=== PATIENT | female | born 1995 | race Caucasian/White ===

== ENCOUNTER 2016-10-16 12:54 | Emergency (ER) | payer OTHER ==
[~2016-10-16] VITALS: Ht 177.8 cm; Wt 98.9 kg
[~2016-10-16 12:54] MED LIST: BCPILLS PO; LORA-554 PO; MULT-877 PO
[2016-10-16 13:05] VITALS: TEMP 36.9; Ht 177.8 cm; Wt 98.9 kg
[2016-10-16] MEDS ORDERED: ACETLIQ12 PO (14:04)
--- NOTE | 2016-10-16 14:24 | EMERGENCY ROOM VISIT NOTE ---
History Report prepared by Tristan: Luis Delgado Under the Supervision of: Dr. Justin Vazquez M.D. First contact with patient: 14:18 Chief Complaint: ILLNESS Stated Complaint: SWOLLEN NECK, TIGHT THROAT, FEVER History of Present Illness The patient is a 21 year old female who presents to the Emergency Room with complaints of a persistent illness that started a few days ago. The patient thinks she has the mumps. She notes a swollen neck, fever, and a tight throat. The patient states that her fever has gone as high as 100 this morning. She denies nausea, vomiting, shortness of breath, abdominal pain, facial pain, groin pain, or leg swelling. The patient was vaccinated as a child. She took DayQuil this morning. The patient notes no major medical history. Source of History: patient Onset: A few days ago Position: other (global - illness) Timing: other (persistent) Associated Symptoms: + fevers, No SOB, No abdominal pain, No nausea, No vomiting Note: Associated symptoms: Swollen neck, tight throat. Denies facial pain, groin pain , or leg swelling. Review of Systems See HPI for pertinent positives & negatives. A total of 10 systems reviewed and were otherwise negative. Family History Patient reports no known family medical history. Social History Smoking Status: Never Smoker Marital Status: single Housing Status: lives with friends Occupation Status: [employer] student Current/Historical Medications Scheduled Control Pills ( Control Pills), 1 TAB PO HS Multiple Vitamins W/ Minerals (Multiple Vitamin/Minerals), 1 TAB PO DAILY Scheduled PRN Acetaminophen W/ Dm (Daytime Cold Medicine), 20 ML PO DAILY PRN for PRN Loratadine (Allergy Relief), Unknown Dose PO DAILY PRN for ALLERGIC REACTION Allergies Coded Allergies: No Known Allergies (Unverified , 10/16/16) Physical Exam Vital Signs Date Time Temp Pulse Resp B/P Pulse Ox O2 Delivery O2 Flow Rate FiO2 10/16/16 16:59 68 18 128/76 98 10/16/16 15:20 69 20 145/79 100 Room Air 10/16/16 13:05 36.9 89 20 137/77 100 Room Air Physical Exam GENERAL: Patient is well appearing and in no acute distress. HEENT: No acute trauma, normocephalic atraumatic, mucous membranes moist, no nasal congestion, no scleral icterus. NECK: No stridor, no meningismus, trachea is midline. Swelling of left upper anterior neck, nontender, no fluctuance. LUNGS: No dyspnea. Clear to auscultation and equal bilaterally. No wheeze, no rhonchi. HEART: Regular rate and rhythm. No murmurs, rubs, gallops appreciated. ABDOMEN: Soft, nontender, bowel sounds positive, no masses appreciated, no peritonitis. BACK: No midline tenderness, no CVA tenderness EXTREMITIES: Normal motion all extremities, no cyanosis, no edema. NEUROLOGIC: Alert and oriented, no acute motor or sensory deficits, no focal weakness, cranial nerves grossly intact. SKIN: No rash, no jaundice, no diaphoresis. Medical Decision & Procedures Laboratory Results 10/16/16 15:17 10/16/16 15:17 Test 10/16/16 15:17 10/16/16 16:47 Red Blood Count 4.89 M/uL (4.2-5.4) Mean Corpuscular Volume 77.5 fL (80-100) Mean Corpuscular Hemoglobin 25.4 pg (25-34) Mean Corpuscular Hemoglobin Concent 32.7 g/dl (32-36) RDW Standard Deviation 41.7 fL (36.4-46.3) RDW Coefficient of Variation 14.8 % (11.5-14.5) Mean Platelet Volume 10.0 fL (7.4-10.4) Anion Gap 10.0 mmol/L (3-11) Est Creatinine Clear Calc Drug Dose 145.3 ml/min Estimated GFR () 126.0 Estimated GFR (Non- 108.7 BUN/Creatinine Ratio 8.3 (10-20) Calcium Level 9.3 mg/dl (8.5-10.1) Monoscreen NEG (NEG) Laboratory results as reviewed by me. ED Course 1415: The patient was evaluated in room B12B. A complete history and physical exam was performed. 1640: I reevaluated the patient and she would like to go home. The patient verbally expressed understanding and agreement of the treatment plan. The patient will be discharged. Medical Decision Pleasant 21 yr old female arrives for left neck swelling with periodic fevers. No fluctuance on exam and minimal TTP. She is stable and looks well. No difficulty with swallowing nor breathing. Labs unremarkable and Cherry is negative. Mumps sent as it is currently in student population, though will take some time to return. Advised she contact [facility] to determine what restrictions she has but in mean time plan on avoiding populations. She plans on going home to [place] to avoid getting other's sick just in case. Aware she can return at any time if worsening issues or other concerns. No evidence of need for CT at this time. Not over parotid gland and no tongue swelling nor oropharynx involvement. No evidence ludwigs. Impression Primary Impression: Unilateral mass of neck Scribe Attestation The scribe's documentation has been prepared under my direction and personally reviewed by me in its entirety. I confirm that the note above accurately reflects all work, treatment, procedures, and medical decision making performed by me. Departure Information Dispostion Home / Self-Care Referrals [facility] Patient Instructions My [facility] Additional Instructions The swelling of your neck is likely an inflamed lymph node. There is a possibility this is due to Mumps as there have been a few cased on campus. Use Tylenol and Motrin as needed for discomfort. Return if difficulty swallowing or breathing. Call [facility] Office to determine if they would like you to avoid classes until Mumps test returns. If may take 1 week for this lab test to be done.
[2016-10-16 15:29] LABS: HEMATOCRIT 37.9 % (37-47); MEAN CELL VOLUME 77.5 fL (80-100); MEAN CORPUSCULAR HEMOGLOBIN 25.4 pg (25-34); MEAN CORPUSCULAR HGB CONC 32.7 g/dl (32-36); PLATELET COUNT 276 K/uL (130-400); RED BLOOD COUNT 4.89 M/uL (4.2-5.4); WHITE BLOOD COUNT 5.77 K/uL (4.8-10.8)
[2016-10-16 15:48] LABS: BUN/CREATININE RATIO 8.3 (10-20); CALCIUM 9.3 mg/dl (8.5-10.1); CREATININE 0.78 mg/dl (0.60-1.20)
[2016-10-16 16:59] VITALS: BP 128/76; PULSE 68; O2SAT 98
[2016-10-19 21:22] LABS: MUMPS VIRUS ANTIBODY IGM <1:20
== END 2016-10-16 17:01 | disposition home or self-care (01) ==
LOC: C.EDB 12:56
DX: R22.1 Localized swelling, mass and lump, neck (principal); Z79.3 Long term (current) use of hormonal contraceptives

== ENCOUNTER 2016-11-10 21:39 | Emergency (ER) | payer OTHER ==
[~2016-11-10] VITALS: Ht 177.8 cm; Wt 100.2 kg
[~2016-11-10 21:39] MED LIST changes: +ACETLIQ12 PO
[2016-11-10 21:44] VITALS: TEMP 36.5; Ht 177.8 cm; Wt 100.2 kg
[2016-11-10] MEDS ORDERED: DiphenhydrAMINE HCL 50 MG/ML VIAL IV STA (21:57)
[2016-11-10] MEDS ORDERED: FAMOTIDINE 20MG/102 ML D5W IV STA (21:57)
[2016-11-10] MEDS ORDERED: RANITIDINE HCL 150 MG TAB PO STA (21:59)
[2016-11-10] MEDS ORDERED: DEXAMETHASONE SOD INJ 10 MG/ML VIAL IV ONE (22:00)
[2016-11-10 23:00] VITALS: O2SAT 97
[2016-11-10] MEDS ORDERED: FERR1TAB13 PO (23:00)
[2016-11-10] MEDS ORDERED: EPINEPHRINE ADULT AUTO-INJECT 0.3 MG SYR IM STA (23:58)
[2016-11-10] MEDS ORDERED: PRED50TA PO (23:59)
[2016-11-11 00:06] VITALS: BP 127/74; PULSE 78; O2SAT 100
--- NOTE | 2016-11-11 02:54 | EMERGENCY ROOM VISIT NOTE ---
History First contact with patient: 21:54 Chief Complaint: ALLERGIC REACTION Stated Complaint: ALLERGIC REACTION Nursing Triage Summary: Pt ambulates to room. Placed on monitor and cont spo2. Pt reports ate Kiwi yesterday and awake this am with swelling to hands, itcy soles of feet. Took bendryl at 1500. Lips began to swell and came to ED. History of Present Illness The patient is a 21 year old female who presents to the Emergency Room with complaints of allergic reaction. Patient states she ate Kiwi and developed itching to her feet hands and face and lips that were swollen. She had Kiwi last year and had no problems. Patient took Benadryl a few hours ago. Patient denies chest pain, throat tightness, dyspnea, abdominal pain, vomiting, diarrhea. She is tolerating by mouth fluids and food. No other new foods soaps or detergents. Review of Systems See HPI for pertinent positives & negatives. A total of 10 systems reviewed and were otherwise negative. Past Medical/Surgical History None Family History Patient reports no known family medical history. Social History Smoking Status: Never Smoker Drug Use: none Marital Status: single Housing Status: lives with friends Occupation Status: [employer] student Current/Historical Medications Scheduled Control Pills ( Control Pills), 1 TAB PO HS Ferrous Sulfate (Kp Ferrous Sulfate), 1 TAB PO DAILY Multiple Vitamins W/ Minerals (Multiple Vitamin/Minerals), 1 TAB PO DAILY Prednisone (Prednisone), 50 MG PO DAILY Allergies Coded Allergies: No Known Allergies (Unverified , 11/10/16) Physical Exam Vital Signs Date Time Temp Pulse Resp B/P Pulse Ox O2 Delivery O2 Flow Rate FiO2 11/11/16 00:06 78 18 127/74 100 11/10/16 23:00 97 Room Air 11/10/16 22:55 Room Air 11/10/16 21:56 106 11/10/16 21:44 36.5 119 18 154/88 99 Room Air Pain Rating (0-10): 0 Physical Exam VITALS: Vitals are noted on the nurse's note and reviewed by myself. Vital signs stable. GENERAL: Pleasant female, in no acute distress, nondiaphoretic, well-developed well-nourished. SKIN: Mild diffuse erythematous blanchable dermatitis to extremities and face The ~skin was without rashes, erythema, edema, or bruising. There is no tenting of the skin. Capillary reflex less than 2 seconds. HEAD: Normocephalic atraumatic. EARS: External auditory canals clear, tympanic membranes pearly valadez without erythema or effusion bilaterally. EYES: Pupils equal round and reactive to light and accommodation. Conjunctivae without injection, sclerae without icterus. Extraocular movements intact. NOSE: Patent, turbinates without inflammation or discharge. No sinus tenderness. MOUTH: Mucous membranes moist. Lips are slightly edematous with no tongue swelling. Pharynx without erythema or exudate. Uvula midline. Airway patent. Tongue does not deviate. NECK: Supple without nuchal rigidity. No lymphadenopathy. No thyromegaly. Cervical spine is nontender. No JVD. HEART: Regular rate and rhythm without murmurs gallops or rubs. LUNGS: Clear to auscultation bilaterally without wheezes, rales or rhonchi. No dullness to percussion. No retractions or accessory muscle use. ABDOMEN: Positive bowel sounds x 4. Normal tympanic percussion. Soft, nontender, without masses or organomegaly. Dacosta sign negative. No guarding or rebound tenderness. MUSCULOSKELETAL: No muscle atrophy, erythema, or edema noted. NEURO: Patient was alert and oriented to person place and time. Normal sensation to light and sharp touch. No focal neurological deficits. Medical Decision & Procedures Medications Administered Medications (Trade) Dose Ordered Sig/Mariana Route Start Time Stop Time Status Last Admin Dose Admin Prednisone (PredniSONE TAB) 60 mg NOW STAT PO 11/10/16 21:59 11/10/16 22:00 DC 11/10/16 22:53 60 MG Ranitidine HCl (zANTac TAB) 150 mg ONE STAT PO 11/10/16 21:59 11/10/16 22:00 DC 11/10/16 22:53 150 MG Diphenhydramine HCl (Benadryl Cap) 50 mg NOW ONCE PO 11/10/16 22:00 11/10/16 22:01 DC 11/10/16 22:52 50 MG ED Course Prior records/ancillary studies reviewed. Triage Nursing notes reviewed. Additional history obtained from friend. The patient's history was concerning for possible allergic reaction. Differential diagnosis: Etiologies such as allergic reaction, anaphylaxis, urticaria, Valdez-Jose syndrome, toxic epidermal necrolysis, erythema multiforme, cellulitis, as well as others were entertained. Physical examination: As above. ER treatment provided: Continuous cardiac monitoring Benadryl 50 mg PO Zantac 150 mg PO Prednisone 60mg PO On reassessment the patient felt better. Diagnostic interpretation by me: Deferred It appears the patient had an allergic reaction. The above treatment did well to reverse the symptoms. After prolonged monitoring and frequent reassessments the patient did very well and symptoms resolved. The patient was counseled on the spectrum of this disease process and told to avoid potential triggers. I gave my usual and customary discussion regarding this issue. By the evaluation outlined above emergent etiologies such as recurring anaphylaxis, anaphylatic shock, airway compromise, Valdez-Jose syndrome, toxic epidermal necrolysis, erythema multiforme, infectious etiologies, as well as others were deemed relatively unlikely. The pt informed about the findings as listed above. All questions were answered and pleased with the treatment. Return instructions were outlined and the patient was discharged in stable condition. Outpatient prescription management: EpiPen prednisone Referral: The patient was referred back to primary care physician for follow-up in 2-3 days for a recheck of the current condition. Medical Decision As above Impression Primary Impression: Allergic reaction Departure Information Dispostion Home / Self-Care Condition GOOD Prescriptions Prednisone (Prednisone) 50 Mg Tab 50 MG PO DAILY for 4 Days, #4 TAB Prov: Li Garcia .RONN 11/10/16 Forms HOME CARE DOCUMENTATION FORM, School Instructions, Return To School: 1 day IMPORTANT VISIT INFORMATION Patient Instructions My [facility], ED Allergic Reaction General Other Additional Instructions DO NOT drive, drink alcohol, operate machinery, or perform dangerous activities today. You were given medications in the ER that can affect your ability to safely function or operate a vehicle. Epi-Pen: Use one injection as instructed for severe allergic reactions associated with shortness of breath, difficulty breathing, or throat or tongue swelling. If you use this injection call 911 or proceed immediately to the nearest Emergency Room. Prednisone 50mg: Once daily until the prescription is finished. It is best to take this earlier in the day as some patients note occasional difficulty falling asleep when taken in the late evening. Diphenhydramine(Benadryl) 25mg: use 25 to 50 mg every six hours for swelling, itching, or hives. This medication is sedating and will cause drowsiness. Avoid alcohol, operating machinery or dangerous equipment, working on ladders or roofs, DRIVING, or situations where being under the influence may be dangerous. Zantac 75: Take two pills twice a day along with Benadryl as needed for swelling , itching, or hives. Most people know this for its affect on the stomach, but it also acts similar to, but less potent than Benadryl for allergic reactions. Both the Benadryl and the Zantac are available [id number]. Continue current medications. Return to the emergency department for worsening of your rash, swelling of your face, lips, tongue, or throat, difficulty breathing, vomiting, or as needed. Follow-up with your primary care physician in 2 to 3 days for a recheck of your current condition. Do not eat Kiwi's until cleared by the yield engineer. School Instructions Return To School: 1 day Problem Qualifiers Primary Impression: Allergic reaction Encounter type: initial encounter Qualified Codes: T78.40XA - Allergy, unspecified, initial encounter
== END 2016-11-11 00:03 | disposition home or self-care (01) ==
LOC: C.EDB 21:40 → C.EDA 11-11 00:03
DX: T78.40XA Allergy, unspecified, initial encounter (principal); X58.XXXA Exposure to other specified factors, initial encounter